=== PATIENT | male | born 1995 | race Caucasian/White ===

== ENCOUNTER 2021-01-10 23:10 | Emergency (ER) | payer OTHER ==
[~2021-01-10 23:10] MED LIST: KEFLEX500 MG PO
[2021-01-11 00:59] LABS: HEMOGLOBIN 15.1 gm/dl (14.0-17.5); RED BLOOD COUNT 5.49 M/UL (4.20-5.50); WHITE BLOOD COUNT 8.9 K/UL (4.5-11.0)
[2021-01-11 01:09] LABS: BUN/CREATININE RATIO 9 (0-10)
[2021-01-11] MEDS ORDERED: KEFLEX CAP 250250 MG PO (01:54)
== END 2021-01-11 02:25 | disposition home or self-care (01) ==
LOC: ER1 23:10
PROVIDERS: Physician Assistant
DX: L03.115 Cellulitis of right lower limb (principal); S82.401G Unspecified fracture of shaft of right fibula, subsequent encounter for closed fracture with delayed healing; F17.210 Nicotine dependence, cigarettes, uncomplicated; X58.XXXD Exposure to other specified factors, subsequent encounter
CPT/HCPCS: 36415; 73700; 80053; 85025; 85652; 86140; 99284

== ENCOUNTER 2021-03-03 02:18 | Emergency (ER) | payer OTHER ==
[~2021-03-03 02:18] MED LIST changes: +KEFLEX CAP 250250 MG PO
[2021-03-03] MEDS ORDERED: AUGMENTIN 875-1 EACH PO (04:23)
== END 2021-03-03 04:30 | disposition home or self-care (01) ==
LOC: ER1 02:18
DX: S61.552A Open bite of left wrist, initial encounter (principal); F17.210 Nicotine dependence, cigarettes, uncomplicated; W54.0XXA Bitten by dog, initial encounter
CPT/HCPCS: 12002; 73090; 99283

== ENCOUNTER 2021-03-10 20:44 | Emergency (ER) | payer OTHER ==
[~2021-03-10 20:44] MED LIST changes: +AUGMENTIN 875-1 EACH PO
== END 2021-03-10 21:35 | disposition home or self-care (01) ==
LOC: ER1 20:44
DX: S61.512D Laceration without foreign body of left wrist, subsequent encounter (principal); X58.XXXD Exposure to other specified factors, subsequent encounter
CPT/HCPCS: 99281